=== PATIENT | female | born 1985 | race Caucasian/White ===

== ENCOUNTER 2022-04-14 21:45 | Inpatient (IN) ==
[2022-04-14] MEDS ORDERED: miSOPROStoL 200 MCG TABLET RECTAL PRN (21:56)
[2022-04-14] MEDS ORDERED: BUTORPHANOL 2 MG/ML VIAL IV PRN (21:56)
[2022-04-14] MEDS ORDERED: MEPERIDINE 50 MG/1 ML VIAL IV PRN (21:56)
[2022-04-14] MEDS ORDERED: TRANEXAMIC ACID 1,000 MG in SODIUM CHLORIDE 0.9% 100 ML IV PRN (21:56)
[2022-04-14] MEDS ORDERED: CARBOPROST TROMETHAMINE 250 MCG/ML AMP IM PRN (21:56)
[2022-04-14] MEDS ORDERED: OXYTOCIN/LR 20 UNIT/1,000 ML BAG IV ONE (21:56)
[2022-04-14] MEDS ORDERED: ONDANSETRON 4 MG/2 ML VIAL IV PRN (21:56)
[2022-04-14] MEDS ORDERED: METHYLERGONOVINE 0.2 MG/1 ML AMP IM PRN (21:56)
[2022-04-14] MEDS ORDERED: DINOPROSTONE 10 MG VAG.INSERT VAG ONE (22:30)
[2022-04-14 22:32] LABS: Basophils % 0.3 % (0.0-0.8); Eosinophils # 0.1 10*3/uL (0.0-0.87); Eosinophils % 0.8 % (0.00-10.9); Hematocrit 35.6 VOL% (35.7-47.0); Hemoglobin 11.6 GM/DL (12.0-16.0); Immature Granulocytes % 0.6 %; Immature Granulocytes Absolute 0.08 #; Lymphocytes # 2.5 10*3/uL (1.4-4.0); Lymphocytes % 18.9 % (21.3-54.2); Mean Corpuscular HGB Conc 32.6 GM/DL (32-36); Mean Corpuscular Volume 83.2 FL (87-102); Mean Platelet Volume 11.3 FL (9.6-12.0); Monocytes # 0.7 10*3/uL (0.11-0.8); Monocytes % 5.3 % (1.7-12.7); Neutrophils % 74.1 % (38.7-73.9); Platelet Count 129 T/CUMM (130-400); Red Blood Count 4.28 MC/CUMM (3.8-5.5); Red Cell Distribution Width 13.3 % (9.3-17.3); White Blood Count 13.11 T/CUMM (4-12)
[2022-04-15] MEDS ORDERED: AMPICILLIN INJ 2,000 MG in SODIUM CHLORIDE 0.9% 100 ML IV ONE (04:00)
[2022-04-15] MEDS: LACTATED RINGERS 1,000 ML IV SCH ×3 (04:03→12:41)
[2022-04-15] MEDS ORDERED: ePHEDrine 50 MG/ML VIAL IV PRN (04:20)
[2022-04-15] MEDS ORDERED: NALOXONE 0.4 MG/ML VIAL IV PRN (04:20)
[2022-04-15] MEDS ORDERED: FAMOTIDINE 20 MG/2 ML VIAL IV ONE (04:22)
[2022-04-15] MEDS ORDERED: CITRIC ACID/SODIUM CITRATE 30 ML UDCUP PO ONE (04:22)
[2022-04-15] MEDS ORDERED: OXYTOCIN/LR 20 UNIT/1,000 ML BAG IV SCH (05:00)
[2022-04-15] MEDS: fentaNYL 2 MCG/ROPIV 0.2% EPID 100 ML EPIDURAL SCH ×2 (06:28→13:28)
[2022-04-15 07:47] LABS: Bacteria,Urine Occasional /HPF (Few); Mucus,Urine Occasional /LPF (Occasional); RBC,Urine <1 /HPF (0-4); Urine Appearance Clear (Clear); Urine Color Yellow (Yellow); Urine pH 6.5 (4.5-8.0)
[2022-04-15 07:48] LABS: Bilirubin,Urine Negative (Negative); Blood, Urine Negative (Negative); Glucose,Urine (UA) Negative (Negative); Ketones,Urine Negative (Negative); Nitrite,Urine Negative (Negative); Protein,Urine Negative (Negative); Urine Urobilinogen 0.2 eU/dL (<2.0)
[2022-04-15] MEDS: AMPICILLIN INJ 1,000 MG in SODIUM CHLORIDE 0.9% 100 ML IV SCH ×2 (07:58→12:39)
[2022-04-15] MEDS ORDERED: SODIUM CHLORIDE 0.9% 0 ML IV ONE (14:11)
[2022-04-15] MEDS ORDERED: miSOPROStoL 200 MCG TABLET ONE (14:11)
[2022-04-15] MEDS ORDERED: METHYLERGONOVINE 0.2 MG/1 ML AMP ONE (14:11)
[2022-04-15] MEDS ORDERED: TRANEXAMIC ACID 1,000 MG/10 ML VIAL ONE (14:11)
[2022-04-15] MEDS ORDERED: CARBOPROST TROMETHAMINE 250 MCG/ML AMP IM ONE (14:12)
[2022-04-15] MEDS ORDERED: DIPH/TET/ACEL PERT BOOSTER VACCINE 0.5 ML VIAL IM ONE (14:34)
[2022-04-15] MEDS ORDERED: BISACODYL 10 MG SUPP RECTAL PRN (14:34)
[2022-04-15] MEDS ORDERED: ACETAMINOPHEN 325 MG TABLET PO PRN (14:34)
[2022-04-15] MEDS ORDERED: RHO(D) IMMUNE GLOBULIN 300 MCG SYRINGE IM ONE (14:34)
[2022-04-15] MEDS ORDERED: MEASLES/MUMPS/RUBELLA VACCINE 0.5 ML VIAL SUBCUT ONE (14:34)
[2022-04-15] MEDS ORDERED: ONDANSETRON 4 MG/2 ML VIAL IV PRN (14:34)
[2022-04-15] MEDS ORDERED: HYDROCORTISONE 2.5% RECTAL CREAM 30 GM TUBE TOP PRN (14:34)
[2022-04-15] MEDS ORDERED: WITCH HAZEL PADS 100/JAR TOP PRN (14:34)
[2022-04-15] MEDS ORDERED: BENZOCAINE 20%/MENTHOL 0.5% SPRAY 56 GM CAN TOP PRN (14:34)
[2022-04-15] MEDS ORDERED: OXYTOCIN/LR 20 UNIT/1,000 ML BAG IV ONE (14:34)
[2022-04-15] MEDS ORDERED: LANOLIN 50% CREAM 0.3 OZ TUBE TOP PRN (14:34)
[2022-04-15] MEDS ORDERED: oxyCODONE/ACETAMINOPHEN 5-325 MG TABLET PO PRN ×2 (14:34)
[2022-04-15] MEDS: IBUPROFEN 800 MG TABLET PO PRN (18:04)
[2022-04-15] MEDS: DOCUSATE SODIUM 100 MG CAPSULE PO SCH (20:50)
[2022-04-16] MEDS: IBUPROFEN 800 MG TABLET PO PRN ×2 (04:00→12:24)
[2022-04-16 06:02] LABS: Basophils % 0.3 % (0.0-0.8); Eosinophils # 0.1 10*3/uL (0.0-0.87); Hematocrit 28.4 VOL% (35.7-47.0); Hemoglobin 9.1 GM/DL (12.0-16.0); Immature Granulocytes % 0.8 %; Lymphocytes # 2.4 10*3/uL (1.4-4.0); Lymphocytes % 20.1 % (21.3-54.2); Mean Corpuscular Volume 84.8 FL (87-102); Mean Platelet Volume 11.7 FL (9.6-12.0); Monocytes # 0.7 10*3/uL (0.11-0.8); Neutrophils % 71.8 % (38.7-73.9); Platelet Count 110 T/CUMM (130-400); Red Blood Count 3.35 MC/CUMM (3.8-5.5); Red Cell Distribution Width 13.6 % (9.3-17.3); White Blood Count 12.01 T/CUMM (4-12)
[2022-04-16] MEDS: MULTIVITAMIN (PRENATAL) TABLET PO SCH (08:03)
[2022-04-16] MEDS: DOCUSATE SODIUM 100 MG CAPSULE PO SCH ×2 (08:04→20:50)
[2022-04-16] MEDS ORDERED: RHO(D) IMMUNE GLOBULIN 300 MCG SYRINGE IM ONE (15:30)
[2022-04-17 07:32] VITALS: BP 109/65
[2022-04-17] MEDS: DOCUSATE SODIUM 100 MG CAPSULE PO SCH (10:02)
[2022-04-17] MEDS: MULTIVITAMIN (PRENATAL) TABLET PO SCH (10:02)
== END 2022-04-17 12:55 | disposition home or self-care (01) | DRG 807 ==
LOC: N.LDOUT 21:45 → N.LD 21:45 → N.OB 04-15 16:29
PROVIDERS: ADMIT Obstetrics & Gynecology; ATTEND Obstetrics & Gynecology